=== PATIENT | female | born 1985 | race Caucasian/White ===

== ENCOUNTER 2017-11-22 16:41 | Emergency (ER) | payer SELFPAY ==
[~2017-11-22] VITALS: Ht 162.6 cm; Wt 78.0 kg
[2017-11-22 16:53] VITALS: BP 125/87; PULSE 109; RESP 22; TEMP 98.8; O2SAT 96
[2017-11-22] MEDS ORDERED: SODIUM CHLOR 0.9% 1000 ML INJ 1,000 ML IV ONE ×2 (17:08→18:45)
[2017-11-22 17:10] VITALS: O2SAT 97
[2017-11-22] MEDS ORDERED: LORazepam 2 MG/ML VIAL IV PUSH ONE ×2 (17:15→19:45)
[2017-11-22] MEDS ORDERED: SODIUM CHLORIDE 0.9% FLUSH 10 ML FLUSH IVF PRN (17:15)
--- NOTE | 2017-11-22 17:17 | PD ---
HPI Chief Complaint: Alcohol/Drug Intoxication Time Seen by Provider: 17:01 Travel History International Travel<30 days: No Contact w/Intl Traveler<30days: No Traveled to known affect area: No History of Present Illness HPI The patient is a 32-year-old female who presents to the emergency department via EMS as a [place] act. [place], acting abnormal. The patient appeared to be having involuntary movements of her extremities and face. The patient admitted to using illicit drugs and was subsequently placed under a [place]man act. The patient thinks she may have used cocaine and/or amphetamines yesterday. The patient did use Kena earlier today and states somebody else gave her a pill which she ended up spitting out, however, thinks the pill may have caused her symptoms. She denies any chronic medical problems. She does admit to using the illicit drug use earlier today and smoking marijuana. Symptoms are moderate. There are no current alleviating factors. PFSH Past Medical History Narrative Medical Illicit drug use ?: Unknown Past Surgical History Narrative Surgical Social History Alcohol Use: Yes Tobacco Use: Yes Substance Use: Yes Allergies-Medications (Allergen,Severity, Reaction): Coded Allergies: loratadine (Verified Allergy, Unknown, 11/22/17) shellfish derived (Verified Allergy, Unknown, 11/22/17) Reported Meds & Prescriptions Reported Meds & Active Scripts Active No Active Prescriptions or Reported Medications Review of Systems ROS Limitations: Clinical Condition Except as stated in HPI: all other systems reviewed are Neg HENT: No: Headaches Cardiovascular: No: Chest Pain or Discomfort Respiratory: No: Shortness of Breath Gastrointestinal: No: Nausea, Vomiting, Abdominal Pain Neurologic: Positive: Other (Involuntary movements) Psychiatric: Positive: Substance Abuse Physical Exam Narrative GENERAL: Awake, alert, pleasant 32-year-old female who appears her stated age and is in no acute respiratory distress. SKIN: Focused skin assessment warm/dry. HEAD: Atraumatic. Normocephalic. EYES: Pupils equal and round. 4 mm bilateral and reactive. ENT: No nasal bleeding or discharge. Mucous membranes pink and moist. NECK: Trachea midline. No JVD. CARDIOVASCULAR: Regular, tachycardic with a heart rate of 105. RESPIRATORY: No accessory muscle use. Clear to auscultation. Breath sounds equal bilaterally. GASTROINTESTINAL: Abdomen soft, non-tender, nondistended. Hepatic and splenic margins not palpable. MUSCULOSKELETAL: No obvious deformities. No clubbing. No cyanosis. No edema. NEUROLOGICAL: Awake and alert. Involuntary movements of the extremities as well as the face consistent with chorea. Patient is alert and oriented 4. She follows simple commands. PSYCHIATRIC: Appropriate mood and affect; insight and judgment normal. Data Data Last Documented VS Vital Signs Date Time Temp Pulse Resp B/P (MAP) Pulse Ox O2 Delivery O2 Flow Rate FiO2 11/22/17 17:10 97 Room Air 11/22/17 16:53 98.8 109 22 125/87 (100) Orders Orders Electrocardiogram (11/22/17 17:08) Complete Blood Count With Diff (11/22/17 17:08) Comprehensive Metabolic Panel (11/22/17 17:08) Prothrombin Time / Inr (Pt) (11/22/17 17:08) Act Partial Throm Time (Ptt) (11/22/17 17:08) Urinalysis - C+S If Indicated (11/22/17 17:08) Iv Access Insert/Monitor (11/22/17 17:08) Ecg Monitoring (11/22/17 17:08) Oximetry (11/22/17 17:08) Lorazepam Inj (Ativan Inj) (11/22/17 17:15) Sodium Chloride 0.9% Flush (Ns Flush) (11/22/17 17:15) Sodium Chlor 0.9% 1000 Ml Inj (Ns 1000 M (11/22/17 17:08) Drug Screen, Random Urine (11/22/17 17:08) Alcohol (Ethanol) (11/22/17 17:08) Salicylates (Aspirin) (11/22/17 17:08) Tylenol (Acetaminophen) (11/22/17 17:08) Lactic Acid (11/22/17 17:08) Creatine Kinase (Cpk) (11/22/17 17:08) CKMB (11/22/17 17:20) CKMB% (11/22/17 17:20) Ns (Bolus) Inj (11/22/17 18:45) Labs Laboratory Tests Test 11/22/17 17:20 White Blood Count 12.8 TH/MM3 Red Blood Count 4.12 MIL/MM3 Hemoglobin 11.3 GM/DL Hematocrit 34.5 % Mean Corpuscular Volume 83.8 FL Mean Corpuscular Hemoglobin 27.3 PG Mean Corpuscular Hemoglobin Concent 32.6 % Red Cell Distribution Width 16.6 % Platelet Count 382 TH/MM3 Mean Platelet Volume 7.8 FL Neutrophils (%) (Auto) 48.3 % Lymphocytes (%) (Auto) 36.1 % Monocytes (%) (Auto) 13.8 % Eosinophils (%) (Auto) 1.3 % Basophils (%) (Auto) 0.5 % Neutrophils # (Auto) 6.2 TH/MM3 Lymphocytes # (Auto) 4.6 TH/MM3 Monocytes # (Auto) 1.8 TH/MM3 Eosinophils # (Auto) 0.2 TH/MM3 Basophils # (Auto) 0.1 TH/MM3 CBC Comment DIFF FINAL Differential Comment Prothrombin Time 10.7 SEC Prothromb Time International Ratio 1.1 RATIO Activated Partial Thromboplast Time 27.6 SEC Blood Urea Nitrogen 12 MG/DL Creatinine 0.97 MG/DL Random Glucose 73 MG/DL Total Protein 8.6 GM/DL Albumin 3.7 GM/DL Calcium Level 8.9 MG/DL Alkaline Phosphatase 73 U/L Aspartate Amino Transf (AST/SGOT) 60 U/L Alanine Aminotransferase (ALT/SGPT) 41 U/L Total Bilirubin 0.6 MG/DL Sodium Level 143 MEQ/L Potassium Level 3.6 MEQ/L Chloride Level 108 MEQ/L Carbon Dioxide Level 24.6 MEQ/L Anion Gap 10 MEQ/L Estimat Glomerular Filtration Rate 66 ML/MIN Lactic Acid Level 0.8 mmol/L Total Creatine Kinase 1068 U/L Salicylates Level 2.1 MG/DL Ethyl Alcohol Level LESS THAN 3 MG/DL [facility] Medical Decision Making Medical Screen Exam Complete: Yes Emergency Medical Condition: Yes Medical Record Reviewed: Yes Interpretation(s) Laboratory Tests Test 11/22/17 17:20 White Blood Count 12.8 TH/MM3 Red Blood Count 4.12 MIL/MM3 Hemoglobin 11.3 GM/DL Hematocrit 34.5 % Mean Corpuscular Volume 83.8 FL Mean Corpuscular Hemoglobin 27.3 PG Mean Corpuscular Hemoglobin Concent 32.6 % Red Cell Distribution Width 16.6 % Platelet Count 382 TH/MM3 Mean Platelet Volume 7.8 FL Neutrophils (%) (Auto) 48.3 % Lymphocytes (%) (Auto) 36.1 % Monocytes (%) (Auto) 13.8 % Eosinophils (%) (Auto) 1.3 % Basophils (%) (Auto) 0.5 % Neutrophils # (Auto) 6.2 TH/MM3 Lymphocytes # (Auto) 4.6 TH/MM3 Monocytes # (Auto) 1.8 TH/MM3 Eosinophils # (Auto) 0.2 TH/MM3 Basophils # (Auto) 0.1 TH/MM3 CBC Comment DIFF FINAL Differential Comment Prothrombin Time 10.7 SEC Prothromb Time International Ratio 1.1 RATIO Activated Partial Thromboplast Time 27.6 SEC Blood Urea Nitrogen 12 MG/DL Creatinine 0.97 MG/DL Random Glucose 73 MG/DL Total Protein 8.6 GM/DL Albumin 3.7 GM/DL Calcium Level 8.9 MG/DL Alkaline Phosphatase 73 U/L Aspartate Amino Transf (AST/SGOT) 60 U/L Alanine Aminotransferase (ALT/SGPT) 41 U/L Total Bilirubin 0.6 MG/DL Sodium Level 143 MEQ/L Potassium Level 3.6 MEQ/L Chloride Level 108 MEQ/L Carbon Dioxide Level 24.6 MEQ/L Anion Gap 10 MEQ/L Estimat Glomerular Filtration Rate 66 ML/MIN Lactic Acid Level 0.8 mmol/L Total Creatine Kinase 1068 U/L Salicylates Level 2.1 MG/DL Ethyl Alcohol Level LESS THAN 3 MG/DL Differential Diagnosis Differential diagnosis includes substance ingestion, polysubstance abuse, methamphetamine use, cocaine use, Kena ingestion, Flocka ingestion, K2 ingestion, electrolyte abnormality, congenital neurologic disorder. Narrative Course IV was established, labs are drawn and sent, and the patient was placed on cardiac telemetry monitoring and continuous pulse oximetry monitoring. EKG was ordered and interpreted. The patient was administered Ativan 2 mg intravenously. CPK was sent to lab. Tox screen and alcohol were sent to lab. CPK was elevated, and 1076 consistent with mild rhabdomyolysis. Potassium and creatinine are within normal limits. The patient was administered 2 L of IV fluids. It appears the patient has rhabdo, most likely from polysubstance abuse involving cocaine. The patient will be monitored in the emergency department and allowed to sleep it off. When she is awake, alert, and oriented once again and is hydrated appropriately she will be discharged. Diagnosis Primary Impression: Rhabdomyolysis Qualified Codes: M62.82 - Rhabdomyolysis Additional Impression: Polysubstance abuse Patient Instructions: General Instructions Additional Instructions: Stop using drugs. Plenty fluids to stay hydrated. Follow-up with a primary physician. Return if symptoms worsen or progress. Scripts No Active Prescriptions or Reported Meds Condition: Sunny Ramirez MD Nov 22, 2017 17:17
[2017-11-22 18:01] LABS: AUTOMATED NEUTROPHIL # 6.2 TH/MM3 (1.8-7.7); BASOPHIL # 0.1 TH/MM3 (0-0.2); BASOPHIL % 0.5 % (0.0-2.0); EOSINOPHIL # 0.2 TH/MM3 (0-0.4); EOSINOPHIL % 1.3 % (0.0-4.0); HEMATOCRIT 34.5 % (35.0-46.0); HEMOGLOBIN 11.3 GM/DL (11.6-15.3); LYMPH % 36.1 % (9.0-44.0); LYMPHOCYTE # 4.6 TH/MM3 (1.0-4.8); MEAN CELL VOLUME 83.8 FL (80.0-100.0); MEAN CORPUSCULAR HEMOGLOBIN 27.3 PG (27.0-34.0); MEAN CORPUSCULAR HGB CONC 32.6 % (32.0-36.0); MEAN PLATELET VOLUME 7.8 FL (7.0-11.0); MONO % 13.8 % (0.0-8.0); MONOCYTE # 1.8 TH/MM3 (0-0.9); NEUT % 48.3 % (16.0-70.0); PLATELET COUNT 382 TH/MM3 (150-450); RED BLOOD COUNT 4.12 MIL/MM3 (4.00-5.30); RED CELL DISTRIBUTION WIDTH 16.6 % (11.6-17.2); WHITE BLOOD COUNT 12.8 TH/MM3 (4.0-11.0)
[2017-11-22 18:12] LABS: INTERNATIONAL NORMALIZED RATIO 1.1 RATIO; PROTHROMBIN TIME - PATIENT 10.7 SEC (9.8-11.6)
[2017-11-22 18:27] LABS: ALBUMIN 3.7 GM/DL (3.4-5.0); ALT (GPT) 41 U/L (10-53); AST (GOT) 60 U/L (15-37); BICARBONATE 24.6 MEQ/L (21.0-32.0); BLOOD UREA NITROGEN 12 MG/DL (7-18); CALCIUM 8.9 MG/DL (8.5-10.1); CHLORIDE 108 MEQ/L (98-107); CREATININE 0.97 MG/DL (0.50-1.00); GLOMERULAR FILTRATION RATE 66 ML/MIN (>89); GLUCOSE,RANDOM 73 MG/DL (74-106); SODIUM (NA) 143 MEQ/L (136-145)
[2017-11-22 18:40] LABS: ALKALINE PHOSPHATASE 73 U/L (45-117); TOTAL BILIRUBIN ADULT 0.6 MG/DL (0.2-1.0); TOTAL PROTEIN 8.6 GM/DL (6.4-8.2)
[2017-11-22 18:52] LABS: ACETAMINOPHEN LESS THAN 2.0 MCG/ML (10.0-30.0)
[2017-11-22 19:53] VITALS: PULSE 75; RESP 19; TEMP 98.8; O2SAT 96
[2017-11-22 22:13] VITALS: PULSE 68; RESP 15; O2SAT 98
--- NOTE | 2017-11-22 22:18 | PD ---
Data Data Last Documented VS Vital Signs Date Time Temp Pulse Resp B/P (MAP) Pulse Ox O2 Delivery O2 Flow Rate FiO2 11/23/17 00:34 74 17 102/54 (70) 96 Room Air 11/22/17 19:53 98.8 Orders Orders Electrocardiogram (11/22/17 17:08) Complete Blood Count With Diff (11/22/17 17:08) Comprehensive Metabolic Panel (11/22/17 17:08) Prothrombin Time / Inr (Pt) (11/22/17 17:08) Act Partial Throm Time (Ptt) (11/22/17 17:08) Urinalysis - C+S If Indicated (11/22/17 17:08) Iv Access Insert/Monitor (11/22/17 17:08) Ecg Monitoring (11/22/17 17:08) Oximetry (11/22/17 17:08) Lorazepam Inj (Ativan Inj) (11/22/17 17:15) Sodium Chloride 0.9% Flush (Ns Flush) (11/22/17 17:15) Sodium Chlor 0.9% 1000 Ml Inj (Ns 1000 M (11/22/17 17:08) Drug Screen, Random Urine (11/22/17 17:08) Alcohol (Ethanol) (11/22/17 17:08) Salicylates (Aspirin) (11/22/17 17:08) Tylenol (Acetaminophen) (11/22/17 17:08) Lactic Acid (11/22/17 17:08) Creatine Kinase (Cpk) (11/22/17 17:08) CKMB (11/22/17 17:20) CKMB% (11/22/17 17:20) Sodium Chlor 0.9% 1000 Ml Inj (Ns 1000 M (11/22/17 18:45) Lorazepam Inj (Ativan Inj) (11/22/17 19:45) Restraints Non-Violent MARCEL.Q3H (11/22/17 19:45) Labs Laboratory Tests Test 11/22/17 17:20 11/23/17 00:10 White Blood Count 12.8 TH/MM3 Red Blood Count 4.12 MIL/MM3 Hemoglobin 11.3 GM/DL Hematocrit 34.5 % Mean Corpuscular Volume 83.8 FL Mean Corpuscular Hemoglobin 27.3 PG Mean Corpuscular Hemoglobin Concent 32.6 % Red Cell Distribution Width 16.6 % Platelet Count 382 TH/MM3 Mean Platelet Volume 7.8 FL Neutrophils (%) (Auto) 48.3 % Lymphocytes (%) (Auto) 36.1 % Monocytes (%) (Auto) 13.8 % Eosinophils (%) (Auto) 1.3 % Basophils (%) (Auto) 0.5 % Neutrophils # (Auto) 6.2 TH/MM3 Lymphocytes # (Auto) 4.6 TH/MM3 Monocytes # (Auto) 1.8 TH/MM3 Eosinophils # (Auto) 0.2 TH/MM3 Basophils # (Auto) 0.1 TH/MM3 CBC Comment DIFF FINAL Differential Comment Prothrombin Time 10.7 SEC Prothromb Time International Ratio 1.1 RATIO Activated Partial Thromboplast Time 27.6 SEC Blood Urea Nitrogen 12 MG/DL Creatinine 0.97 MG/DL Random Glucose 73 MG/DL Total Protein 8.6 GM/DL Albumin 3.7 GM/DL Calcium Level 8.9 MG/DL Alkaline Phosphatase 73 U/L Aspartate Amino Transf (AST/SGOT) 60 U/L Alanine Aminotransferase (ALT/SGPT) 41 U/L Total Bilirubin 0.6 MG/DL Sodium Level 143 MEQ/L Potassium Level 3.6 MEQ/L Chloride Level 108 MEQ/L Carbon Dioxide Level 24.6 MEQ/L Anion Gap 10 MEQ/L Estimat Glomerular Filtration Rate 66 ML/MIN Lactic Acid Level 0.8 mmol/L Total Creatine Kinase 1068 U/L Creatine Kinase MB 4.1 NG/ML Creatine Kinase MB % 0.4 % Salicylates Level 2.1 MG/DL Acetaminophen Level LESS THAN 2.0 MCG/ML Ethyl Alcohol Level LESS THAN 3 MG/DL Urine Color YELLOW Urine Turbidity HAZY Urine pH 5.5 Urine Specific Orick 1.037 Urine Protein 30 mg/dL Urine Glucose (UA) NEG mg/dL Urine Ketones 10 mg/dL Urine Occult Blood NEG Urine Nitrite NEG Urine Bilirubin NEG Urine Urobilinogen 2.0 MG/DL Urine Leukocyte Esterase SMALL Urine RBC 5 /hpf Urine WBC 3 /hpf Urine Squamous Epithelial Cells 20 /hpf Urine Bacteria RARE /hpf Urine Hyaline Casts 2 /lpf Urine Mucus MANY /lpf Microscopic Urinalysis Comment CULT NOT INDICATED Urine Opiates Screen NEG Urine Barbiturates Screen NEG Urine Amphetamines Screen POS Urine Benzodiazepines Screen NEG Urine Cocaine Screen POS Urine Cannabinoids Screen POS MDM Supervised Visit with FAVIAN: Yes Narrative Course Seen care patient 7 PM. Shortly after initial assessment, patient became a little more agitated again. Initially responded well to the Ativan given by Dr. Callejas. Began thrashing about. She was still in soft restraints. Not really coherent to follow directions or be redirected. She had a sitter. We will give her another 2 mg of IV Ativan. Still awaiting sobriety to clear her illicit drugs. 5 AM: Patient significantly improved. Walking steady. Coherent. Stable for discharge. Diagnosis Primary Impression: Rhabdomyolysis Qualified Codes: M62.82 - Rhabdomyolysis Additional Impression: Polysubstance abuse Patient Instructions: General Instructions Additional Instruction: Stop using drugs. Plenty fluids to stay hydrated. Follow-up with a primary physician. Return if symptoms worsen or progress. Scripts No Active Prescriptions or Reported Meds Condition: Stable Sam Onofre MD Nov 22, 2017 22:18
[2017-11-23 00:31] LABS: BACTERIA, URINE RARE /hpf; BILIRUBIN, URINE NEG (NEG); BLOOD, URINE NEG (NEG); GLUCOSE,URINE NEG (NEG); HYALINE CAST, URINE 2 /lpf (RARE); KETONE, URINE 10 mg/dL (NEG); MUCUS URINE MANY /lpf (OCC); NITRITE,URINE NEG (NEG); PH, URINE 5.5 (5.0-8.5); SQUAMOUS EPITHELIAL CELL URINE 20 /hpf (0-5); URINE COLOR YELLOW (YELLW/STRAW); URINE LEUKOCYTE ESTERASE SMALL (NEG)
[2017-11-23 00:34] VITALS: BP 102/54; PULSE 74; RESP 17; O2SAT 96
--- NOTE | 2017-11-23 09:13 | EKG ---
Date Performed: 11/22/2017 Time Performed: 17:01:06 PTAGE: 32 years EKG: Sinus rhythm BASELINE ARTIFACT ABNORMAL ECG INTERPRETATION BASED ON A DEFAULT AGE OF 39 YEARS NO PREVIOUS TRACING DOCTOR: Sam Pena Interpretating Date/Time 11/23/2017 09:12:20
== END 2017-11-23 05:24 | disposition home or self-care (01) ==
LOC: NEPC 16:41
DX: M62.82 Rhabdomyolysis (principal); F19.10 Other psychoactive substance abuse, uncomplicated; R45.1 Restlessness and agitation; R94.31 Abnormal electrocardiogram [ECG] [EKG]; Z72.0 Tobacco use
CPT/HCPCS: 80053; 80307; 81001; 82550; 82552; 83605; 85025; 85610; 85730; 93005; 96361; 96374; 96376; 99285; J2060; J7030